=== PATIENT | female | born 1990 | race Two or more races ===

== ENCOUNTER 2019-01-03 16:28 | Emergency (ER) | payer BC, OTHER ==
[~2019-01-03] VITALS: Ht 154.9 cm; Wt 59.0 kg
[2019-01-03 16:58] LABS: *URINE HCG, QUAL NEGATIVE (NEGATIVE)
[2019-01-03] MEDS ORDERED: ONDANSETRON ODT 4 MG TAB.RAPDIS ONE (16:59)
[2019-01-03] MEDS ORDERED: ONDANSETRON ODT 4 MG TAB.RAPDIS SL ONE (17:00)
[2019-01-03] MEDS ORDERED: HYDROMORPHONE 1 MG/1 ML DISP.SYRIN IM ONE (17:30)
[2019-01-03] MEDS ORDERED: ONDANSETRON 4 MG/2 ML VIAL IM ONE (17:30)
[2019-01-03] MEDS ORDERED: ONDANSETRON IV *ER 4 MG/2 ML VIAL IV ONE (17:30)
[2019-01-03] MEDS ORDERED: HYDROMORPHONE 1 MG/1 ML DISP.SYRIN IV ONE (17:30)
[2019-01-03] MEDS ORDERED: ONDANSETRON 4 MG/2 ML VIAL ONE (17:33)
[2019-01-03] MEDS ORDERED: HYDROMORPHONE 2 MG/1 ML DISP.SYRIN ONE (17:33)
--- NOTE | 2019-01-03 17:35 | NUR ---
Patient discharged to home in stable conditon. Written and verbal after care instructions given. Patient verbalizes understanding of instructions.PT WALKS IN STEADY GAIT. PT HAS HAD DILAUDID BEFORE AND KNOWS HOW IT WORKS ON HER. PT WANTS TO GO AND REST. PT ACCOMPANIED BY SO.
[2019-01-03 17:36] VITALS: BP 131/71
== END 2019-01-03 17:37 | disposition home or self-care (01) ==
LOC: ER 16:30
DX: G43.909 Migraine, unspecified, not intractable, without status migrainosus (principal)
CPT/HCPCS: 70450; 84703; 96372 ×2; 99284; J1170; J2405; A4663; Q0162

== ENCOUNTER 2019-10-24 18:10 | Emergency (ER) | payer BC, OTHER ==
[~2019-10-24] VITALS: Ht 154.9 cm; Wt 59.0 kg
--- NOTE | 2019-10-24 19:04 | NUR ---
Patient discharged to home in stable condition. Written and verbal after care instructions given. Patient verbalizes understanding of instructions. Stressed follow up or return to ER for worsening s/s.
== END 2019-10-24 19:05 | disposition home or self-care (01) ==
LOC: ER 18:10
DX: Z11.59 Encounter for screening for other viral diseases (principal); Z20.828 Contact with and (suspected) exposure to other viral communicable diseases
CPT/HCPCS: 99283; C9803; U0003; A4663

== ENCOUNTER 2020-04-08 13:05 | Outpatient (CLI) | payer BC | END 2020-04-08 23:59 | disposition home or self-care (01) | LOC: LAB 13:05 | PROVIDERS: ATTEND Family Medicine | DX: Z32.00 Encounter for pregnancy test, result unknown (principal) | CPT/HCPCS: 36415 ==

== ENCOUNTER 2020-04-15 11:35 | Outpatient (CLI) | payer BC | END 2020-04-15 23:59 | disposition home or self-care (01) | LOC: LAB 11:35 | PROVIDERS: ATTEND Family Medicine | DX: Z32.00 Encounter for pregnancy test, result unknown (principal) | CPT/HCPCS: 36415 ==

== ENCOUNTER 2020-04-21 12:52 | Emergency (ER) | payer BC, OTHER ==
[~2020-04-21] VITALS: Ht 154.9 cm; Wt 59.0 kg
[2020-04-21 13:31] LABS: BASOPHILS # (AUTO) 0.1 K/uL (0.0-8.0); BASOPHILS % (AUTO) 0.9 % (0.0-2.0); EOSINOPHILS % (AUTO) 0.4 % (0.0-7.0); HEMATOCRIT 40.7 % (31.2-41.9); LYMPHOCYTES # (AUTO) 2.1 K/uL (20.0-40.0); LYMPHOCYTES % (AUTO) 21.2 % (20.5-51.5); MEAN CORPUSCULAR HEMOGLOBIN 31.8 uug (24.7-32.8); MEAN CORPUSCULAR HGB CONC 34 g/dL (32.3-35.6); MEAN CORPUSCULAR VOLUME 92.4 fL (75.5-95.3); MONOCYTES # (AUTO) 0.8 K/uL (2.0-10.0); MONOCYTES % (AUTO) 7.7 % (0.0-11.0); NEUTROPHILS % (AUTO) 69.8 % (38.5-71.5); PLATELET COUNT (AUTO) 265 K/uL (179-408); RED BLOOD CELL COUNT(AUTO) 4.41 MIL/uL (3.63-4.92)
[2020-04-21 13:34] LABS: CREATININE 0.8 mg/dL (0.6-1.3); POTASSIUM 3.9 mmol/L (3.5-5.1)
[2020-04-21 13:50] LABS: *BILIRUBIN,URIN NEGATIVE (NEGATIVE); *CLARITY,URINE CLEAR (CLEAR); *COLOR,URINE YELLOW (YELLOW); *KETONES,URINE NEGATIVE (NEGATIVE); *UROBILINOGEN,URINE 0.2 E.U./dl (NORMAL); LEUKOCYTE ESTERASE ,URINE 2+ (NEGATIVE); NITRITE, URINE NEGATIVE (NEGATIVE); UGLUCOSE NEGATIVE (NEGATIVE)
[2020-04-21 13:52] LABS: *BLOOD, URINE TRACE (NEGATIVE)
[2020-04-21 16:33] VITALS: BP 128/69
[2020-04-21 17:18] LABS: BACTERIA,URINE FEW /HPF (NONE SEEN); RBC,URINE 0-3 /HPF (0-3); SQUAMOUS EPITHELIAL CELL,UR FEW /HPF (NONE SEEN); URINE AMORPHOUS PHOSPHATES FEW /HPF; WBC,URINE 50-80 /HPF (0-3)
== END 2020-04-21 14:20 | disposition home or self-care (01) ==
LOC: ER 12:52
DX: O23.41 Unspecified infection of urinary tract in pregnancy, first trimester (principal); Z3A.01 Less than 8 weeks gestation of pregnancy; R10.30 Lower abdominal pain, unspecified
CPT/HCPCS: 36415; 76856; 85025; 87077; 87086; A4663